=== PATIENT | female | born 1995 | race Caucasian/White ===

== ENCOUNTER → 2022-11-02 13:26 | Outpatient (CLI) | payer OTHER, SELFPAY ==
--- NOTE | ~2022-11-02 | US_ITS ---
EXAMINATION: US OB /maternal detail DATE: 11/02/2022 14:34 INDICATION: survey TECHNIQUE: Multiple obstetric sonographic images performed. FINDINGS: No prior studies for comparison. There is a single living fetus in vertex presentation. The placenta is anterior without placenta pre via. Placental margin to the cervix is 2.7 cm. Cervical length is 4.5 cm. Amniotic fluid volume is shoemaker bjectively normal. cardiac activity and movement is noted with a heart rate of 152 beats per minute. The following anatomy was identified as normal: 4 chamber heart 3 vessel cord cord insertion kidneys urinary bladder stomach spine diaphragm ventricles cisterna magna cerebellum The following biometric data were obtained: BPD: 47mm corresponds to gestational age 20 weeks 1 days. Head circumference: 176 mm corresponds to gestational age 20 weeks 1 days. Abdominal circumference: 151 mm corresponds to gestational age 20 weeks 2 days. Femur length: 30 mm corresponds to gestational age 19 weeks 2 days. Head circumference to abdominal circumference ratio: 1.16 (normal range for expected gestational age is 1.08-1.25). Estimated weight: 319 grams +/- 48 grams using Hadlock method. IMPRESSION: 1: Single living intrauterine with an estimated gestational age of 20weeks 0days by current ultrasound measurements, with an EDC of 03/22/2023 in vertex presentation. 2. Normal survey. Reviewed, dictated and finalized at location B. 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 2. Normal survey.
== END ==
PROVIDERS: PCP Family Medicine; Visit Provider Obstetrics & Gynecology
DX: Z34.92 Encounter for supervision of normal pregnancy, unspecified, second trimester (principal)
CPT/HCPCS: 76805